=== PATIENT | female | born 1950 | race Caucasian/White ===

== ENCOUNTER 2017-10-28 02:52 | Inpatient (IN) | payer BC, MEDICARE ==
[~2017-10-28] VITALS: Ht 162.6 cm; Wt 118.4 kg
[2017-10-28] VITALS (7 sets, daily range): BP systolic 119–161; BP diastolic 59–87
[~2017-10-28 02:52] MED LIST: ADULT LOW DOSE81 MG PO; ALENDRONATE PO; ALLEGRA ALLERG180 MG PO; ALLEGRA180 MG; ATORVASTATIN CA40 MG PO; BUSPAR; BUSPIRONE HCL10 MG PO; CALCIUM 600 +1 EAC1 PO; CARBIDOPA-LEVO1 EAC2 PO; CARBIDOPA-LEVO1 EAC3 PO; CARISOPRODOL 3350 MG PO; CENTRUM SILVER1 EAC3 PO; CLONIDINE PO; CLOPIDOGREL75 MG PO; COLACE100 MG PO; COREG25 MG PO; COZAAR 25 MG TA25 M1 PO; DEMADEX20 MG PO; DESYREL50 MG PO; DIOVAN; EPIPEN0.3 MG/0.3; FISH OIL 1,0001 EAC5 PO; FISH OIL 1,001000 M2 PO; FUROSEMIDE 80 M80 M1 PO; GLUCOPHAGE1000 MG; IMDUR 30 MG TAB30 M1 PO; LANTUSSOLASTAR; LASIX 40 MG TAB40 MG GT; LASIX 80 MG TAB80 M1 PO; LEVEMIR SUBQ; LOPRESSOR 50 MG50 M1; LOPRESSOR25 PO; MIRALAX17 GM PO; MUCINEX TA600 MG/TA2 PO; NASONEX17 GM; NEURONTIN 300300 M1 PO; NITROQUICK0.4 MG; NITROSTAT0.4 M1 SL; NOVOLIN R100 UNIT/1 SUBQ; NOVOLOG100 UNIT/1 SUBQ; PENTOXIFYLLINE400 MG PO; PLAVIX 75 MG TA75 MG PO; PREDNISONE 10 M10 M1 PO; PREDNISONE 10 M10 MG PO; RANEXA1000 MG PO; SERTRALINE HCL50 MG PO; SINEMET 25-1001 EAC1 PO; SPIRIVA INH; SPIRIVA PO; SYMBICORT160 MCG/4. INH; SYNTHROID100 MCG PO; TRAMADOL 50 MG50 MG PO; TRAZODONE HCL50 MG; TRAZODONE HCL50 MG PO; TRICOR145 MG PO; TRILIPIX135 MG PO; ULTRAM 50MG TAB50 MG PO; XOPENEX1.25 MG/3 INH; ZAROXOLYN 5MG TA5 MG PO; ZOCOR40 MG PO; ZOLOFT; ZOLOFT50 MG PO
[2017-10-28 03:12] LABS: NUCLEATED RBCS 0 /100WBC; RDW-CV 16.8 % (10.5-14.5)
[2017-10-28 03:14] LABS: HEMATOCRIT 37.2 % (37.0-47.0); HEMOGLOBIN 12.2 gm/dL (12.0-15.0); MCH 30.8 pg (26.0-34.0); MCHC 32.9 g/dL (28.0-37.0); MCV 93.5 fL (80.0-100.0); MPV 8.2 fl. (7.2-11.1); PLATELET COUNT* 303 thou/uL (150-400); RBC 3.98 mil/uL (4.20-5.00); WBC 10.5 thou/uL (4.0-11.0)
[2017-10-28 03:21] LABS: ANION GAP 9 mmol/L (7-16); BUN 48 mg/dL (7-18); CALCIUM 8.4 mg/dL (8.5-10.1); CHLORIDE 95 mmol/L (98-107); CO2 31 mmol/L (21-32); CREATININE 2.2 mg/dL (0.6-1.3); GLUCOSE 231 mg/dL (70-99); INR 1.3; POTASSIUM 3.2 mmol/L (3.5-5.1); PROTIME 12.4 Seconds (9.20-11.50); SODIUM 135 mmol/L (136-145)
[2017-10-28 03:30] LABS: URINE BILIRUBIN NEGATIVE (Negative); URINE BLOOD NEGATIVE (Negative); URINE CLARITY CLEAR; URINE COLOR YELLOW; URINE GLUCOSE-RANDOM NEGATIVE (Negative); URINE KETONES NEGATIVE (Negative); URINE LEUKOCYTES-REFLEX NEGATIVE (Negative); URINE NITRITE-REFLEX NEGATIVE (Negative); URINE PROTEIN 1+ (Negative); URINE UROBILINOGEN 0.2 E.U./dl (0.2-1.0)
[2017-10-28 03:31] LABS: ALBUMIN 2.9 g/dL (3.4-5.0); ALKALINE PHOSPHATASE 50 U/L (46-116); LIPASE 83 U/L (73-393); NT-PRO BRAIN NAT PEPTIDE 13740 pg/mL (<300); SGOT 13 U/L (15-37); SGPT 5 U/L (30-65); TOTAL BILIRUBIN 0.7 mg/dL (<0.1-1.0); TOTAL PROTEIN 6.7 g/dL (6.4-8.2); TROPONIN-I LEVEL <0.06 ng/mL (<0.06)
[2017-10-28 03:32] LABS: ABSOLUTE EOSINOPHILS 0.2 thou/uL (0.0-0.7); ABSOLUTE LYMPHOCYTES 1.2 thou/uL (0.8-5.3); ABSOLUTE MONOCYTES 1.1 thou/uL (0.0-1.2); ABSOLUTE NEUTROPHILS 8.1 thou/uL (1.6-8.1); PLATELET ESTIMATE ADEQUATE; TOXIC GRANULATION 1+
[2017-10-28 03:33] LABS: ANISOCYTOSIS Occasional
--- NOTE | 2017-10-28 12:42 | EKG ---
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1950 Requested By: Sally Velazco Order Number: [id number] MD: Simon Boyer Measurements Intervals [place] Rate: 106 P: -14 WI: 190 QRS: -37 QRSD: 136 T: 151 QT: 410 QTc: 545 Interpretive Statements Ventricular-paced complexes No further rhythm analysis attempted due to paced rhythm Probable left atrial enlargement Left bundle branch block Artifact in lead(s) II,aVL,aVF Compared to ECG 08/05/2017 21:32:24 Left bundle-branch block now present Sinus rhythm no longer present Ventricular premature complex(es) no longer present Intraventricular conduction delay no longer present Early repolarization no longer present Possible ischemia no longer present Electronically Signed On 10-28-2017 12:42:21 RN BABY by Simon Boyer [email or web address] <ELECTRONICALLY SIGNED> By: Lela Boyer MD, [facility] 10/28/17 [id number] Lela Boyer MD, [facility] /EPI
[2017-10-29 08:00] VITALS: BP 151/79
[2017-10-29 11:58] VITALS: BP 85/52
[2017-10-29 16:13] VITALS: BP 119/55
[2017-10-29 21:00] VITALS: BP 136/70
[2017-10-30] VITALS: BP 112/69
[2017-10-30 04:00] VITALS: BP 151/77
[2017-10-30 04:50] LABS: ABSOLUTE EOSINOPHILS 0.2 thou/uL (0.0-0.7); ABSOLUTE LYMPHOCYTES 0.8 thou/uL (0.8-5.3); ABSOLUTE MONOCYTES 0.6 thou/uL (0.0-1.2); ABSOLUTE NEUTROPHILS 5.5 thou/uL (1.6-8.1); BASOPHILS 0.6 %; EOSINOPHILS 2.2 %; HEMATOCRIT 33.4 % (37.0-47.0); HEMOGLOBIN 11.4 gm/dL (12.0-15.0); LYMPHOCYTES 10.9 %; MCH 31.8 pg (26.0-34.0); MCHC 34.1 g/dL (28.0-37.0); MCV 93.4 fL (80.0-100.0); MONOCYTES 8.8 %; MPV 8.7 fl. (7.2-11.1); NUCLEATED RBCS 0 /100WBC; POLYS 77.5 %; RBC 3.57 mil/uL (4.20-5.00); RDW-CV 17.2 % (10.5-14.5); WBC 7.1 thou/uL (4.0-11.0)
[2017-10-30 04:57] LABS: CALCIUM 8.3 mg/dL (8.5-10.1); POTASSIUM 3.1 mmol/L (3.5-5.1)
[2017-10-30 05:00] LABS: PLATELET COUNT* 220 thou/uL (150-400)
[2017-10-30] MEDS ORDERED: FLAGYL500 MG PO (10:37)
[2017-10-30] MEDS ORDERED: ONDANSETRON HCL4 M2 PO (10:37)
[2017-10-30] MEDS ORDERED: LEVAQUIN 500 M500 M3 PO (10:37)
[2017-10-30 10:39] VITALS: BP 141/77
== END 2017-10-30 11:10 | disposition home or self-care (01) | DRG 372 ==
LOC: M.ERS 02:52 → M.TBA-ER 03:51 → M.3W 03:51
PROVIDERS: Emergency Medicine; Internal Medicine; ADMIT Family Medicine
DX: A04.9 Bacterial intestinal infection, unspecified (principal); I13.0 Hypertensive heart and chronic kidney disease with heart failure and stage 1 through stage 4 chronic kidney disease, or unspecified chronic kidney disease; N18.4 Chronic kidney disease, stage 4 (severe); E87.1 Hypo-osmolality and hyponatremia; J98.11 Atelectasis; R65.10 Systemic inflammatory response syndrome (SIRS) of non-infectious origin without acute organ dysfunction; J44.9 Chronic obstructive pulmonary disease, unspecified; I50.9 Heart failure, unspecified; E78.00 Pure hypercholesterolemia, unspecified; E11.51 Type 2 diabetes mellitus with diabetic peripheral angiopathy without gangrene; G47.00 Insomnia, unspecified; F32.9 Major depressive disorder, single episode, unspecified; F41.9 Anxiety disorder, unspecified; I25.10 Atherosclerotic heart disease of native coronary artery without angina pectoris; L40.9 Psoriasis, unspecified; M79.7 Fibromyalgia; E87.6 Hypokalemia; E83.51 Hypocalcemia; E11.22 Type 2 diabetes mellitus with diabetic chronic kidney disease; M81.0 Age-related osteoporosis without current pathological fracture; Z86.73 Personal history of transient ischemic attack (TIA), and cerebral infarction without residual deficits; Z95.5 Presence of coronary angioplasty implant and graft; Z90.49 Acquired absence of other specified parts of digestive tract; Z90.711 Acquired absence of uterus with remaining cervical stump; Z79.899 Other long term (current) drug therapy; Z79.82 Long term (current) use of aspirin; Z79.4 Long term (current) use of insulin; Z88.8 Allergy status to other drugs, medicaments and biological substances; Z82.49 Family history of ischemic heart disease and other diseases of the circulatory system; Z87.891 Personal history of nicotine dependence